=== PATIENT | female | born 1995 ===

== ENCOUNTER 2020-03-03 15:55 | Emergency (ER) | payer OTHER, SELFPAY ==
[2020-03-03 16:01] VITALS: BP 141/83; PULSE 85; RESP 12; TEMP 36.8; O2SAT 100
--- NOTE | 2020-03-03 16:25 | ED.FEMALEGU ---
HPI - Female Genitourinary General Chief complaint: Urogenital-Female Stated complaint: Pos UTI Source: patient Mode of arrival: ambulatory Limitations: no limitations History of Present Illness HPI Narrative: Patient is a 25-year-old female who presents complaining of lower abdominal bloating, urinary frequency and burning x2 days. She reports initially feeling like she had a yeast infection, but reports pain is with urinating. She denies exposure to STDs. She denies significant medical history. She denies all other complaints. She has not taking any [id number] medications for pain relief. MD elicited complaint: UTI Related Data Home Medications Medication Instructions Recorded Confirmed lisdexamfetamine [Vyvanse] 30 mg PO DAILY 03/03/20 03/03/20 valacyclovir 500 mg PO DAILY 03/03/20 03/03/20 Allergies Allergy/AdvReac Type Severity Reaction Status Date / Time No Known Allergies Allergy Unknown Verified 03/03/20 16:01 Review of Systems Review of Systems: Narrative: CONSTITUTIONAL: Denies fever, chills, or sweats. EYES: Denies visual changes, redness, or discharge. ENT: Denies rhinorrhea, congestion, sore throat, or otalgia. CARDIOVASCULAR: Denies chest pain, palpitations, or edema. RESPIRATORY: Denies cough or dyspnea. GASTROINTESTINAL: Denies abdominal pain, nausea, vomiting, or diarrhea. GENITOURINARY: Reports dysuria. SKIN: Denies rash or itching. MUSCULOSKELETAL: Denies back pain, joint pain, or myalgia. NEUROLOGIC: Denies headache, numbness, dizziness, or weakness. PSYCHIATRIC: Denies anxiety or depression. PMFSH Surgical History Surgical History No significant past surgical history Family History Family History Sibling Family history of mental disorder Social History Social History (Updated 03/03/20 @ 16:28 by LIN Berrios) Smoking status: Never smoker Alcohol intake: current Substance use: never Exam Narrative: Exam Narrative: GENERAL: Well-appearing, well-nourished, and in no acute distress. HEAD: Normocephalic, atraumatic. EYES: No redness or drainage. ENT: Mucous membranes pink and moist. CHEST: No respiratory distress. GI/: Soft, nontender without rebound, or guarding. No distention. No CVA tenderness EXTREMITIES: Normal range of motion. SKIN: Warm, dry, no rash. NEURO: No focal deficits. Alert and oriented x3. Gait steady. PSYCH: Normal affect. No signs of depression or anxiety. Course Vital Signs Vital signs: Vital Signs Temperature 36.8 C 03/03/20 16: Pulse Rate 85 03/03/20 16:01 Respiratory Rate 12 03/03/20 16:01 Blood Pressure 141/83 H 03/03/20 16:01 Pulse Oximetry 100 03/03/20 16:01 Temperature 36.8 C 03/03/20 16:01 Pulse Rate 85 03/03/20 16:01 Respiratory Rate 12 03/03/20 16:01 Blood Pressure 141/83 H 03/03/20 16:01 Pulse Oximetry 100 03/03/20 16:01 Reviewed. Patient has been instructed to follow-up with her PCP regarding her blood pressure. MDM - Female Genitourinary MDM Narrative Medical decision making narrative: Patient's UA shows blood and leukocytes. Discussed with patient that she most likely has UTI. Discussed starting antibiotics at this time. Patient is aware that if she develops increasing flank pain or inability to urinate, that she is to go to the emergency department immediately for further evaluation. Patient is stable for discharge home with outpatient follow-up as directed. Differential Diagnosis Differential diagnosis: Likely urinary tract infection, cystitis and other (Pyelonephritis) Lab Data Labs: Urine Glucose Negative Reference Range: Negative Urine Bilirubin Negative Reference Range: Negative Urine Ketone Negative
== END 2020-03-03 17:05 | disposition home or self-care (01) ==
PROVIDERS: Emergency Provider Nurse Practitioner; PCP Family Medicine
DX: N39.0 Urinary tract infection, site not specified (principal)
CPT/HCPCS: 81003; 87077; 87086; 87088; 87186; 99213; G0463